=== PATIENT | male | born 1975 | race Hispanic/Latino ===

== ENCOUNTER 2019-08-01 10:03 | Emergency (ER) | payer SELFPAY ==
--- NOTE | 2019-08-01 10:45 | RAD ---
3 views right shoulder: 08/01/2019 COMPARISON: None HISTORY: Fall, trauma, pain FINDINGS: No fracture or dislocation. No radiopaque foreign body or subcutaneous gas. IMPRESSION: No acute findings. There is narrowing of the right acromioclavicular interspace with mild superior and inferior osteophyte formation. There is no widening of the coracoclavicular interspace. No displaced fracture or evidence of dislocation. 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 No acute fracture or dislocati on seen.
[2019-08-01] MEDS ORDERED: Ketorolac Tromethamine 60 MG/2 ML VIAL ONE (11:50)
== END 2019-08-01 12:18 | disposition home or self-care (01) ==
LOC: ERS 10:03
DX: M25.511 Pain in right shoulder (principal); J02.9 Acute pharyngitis, unspecified; Z71.6 Tobacco abuse counseling; V89.9XXA Person injured in unspecified vehicle accident, initial encounter
CPT/HCPCS: 96372; 99406; J1885

== ENCOUNTER 2020-06-24 19:32 | Emergency (ER) | payer OTHER, SELFPAY ==
[2020-06-24 20:50] LABS: Hemoglobin 17.1 g/dL (14.0-18.0); Mean Corpuscular HGB CONC 33.8 g/dL (32.0-36.0); Mean Corpuscular Hemoglobin 30.6 pg (27.0-31.0); Mean Corpuscular Volume 90.4 fL (78.0-98.0); Mean Platelet Volume 6.8 fL (7.4-10.4); Platelet Count 207 thou/uL (130-400); RBC Distribution Width 12.4 % (11.5-14.5); Red Blood Cell (RBC) Count 5.59 mill/uL (4.70-6.10); White Blood Cell (WBC) Count 5.6 thou/uL (4.8-10.8)
[2020-06-24 20:56] LABS: ALT (SGPT) 52 U/L (8-55); AST (SGOT) 31 U/L (5-34); Albumin 4.4 g/dL (3.5-5.0); Alkaline Phosphatase 86 U/L (40-110); Anion Gap 12 mmol/L (10-20); BUN (Urea Nitrogen) 17 mg/dL (8.9-20.6); Bilirubin, Total 0.3 mg/dL (0.2-1.2); CK (CPK) 167 U/L (30-200); Calc. Creatinine Clearance 0 mL/min (70-130); Calcium 8.9 mg/dL (7.8-10.44); Carbon Dioxide 23 mmol/L (22-29); Chloride 105 mmol/L (98-107); Estimated GFR-MDRD 72; Globulin 3.1 g/dL (2.4-3.5); Glucose 151 mg/dL (70-105); Potassium 3.3 mmol/L (3.5-5.1); Protein, Total 7.5 g/dL (6.0-8.3); Sodium 137 mmol/L (136-145)
[2020-06-24 21:05] LABS: Band 4 % (5-11); Lymphocytes 19 % (21-51); MDiff Complete? YES; Monocytes 6 % (0-10); Neutrophil 71 % (42-75); Platelet Morphology Comment Appears Adequate; RBC Morphology Normal
[2020-06-25 14:14] LABS: SARS-CoV-2 MS2 Negative; SARS-CoV-2 N Gene Positive; SARS-CoV-2 S Gene Positive; SARS-CoV-2 by NAA DETECTED (NotDetected); SARS-CoV-2 orf1ab Positive
== END 2020-06-24 22:11 | disposition home or self-care (01) ==
LOC: ERS 19:32
DX: U07.1 COVID-19 (principal)
CPT/HCPCS: 80053; 82550; 85025; 87635; 96360; 96361; U0003